=== PATIENT | female | born 1980 | race American Indian/Alaskan Native ===

== ENCOUNTER 2017-04-04 19:38 | Emergency (ER) | payer BC ==
[2017-04-04 19:55] VITALS: O2SAT 100
--- NOTE | 2017-04-04 20:00 | C.PDOC ---
Time Seen by Provider: 04/04/17 19:59 Chief Complaint (Nursing): Abdominal Pain Past Medical History Vital Signs: Last Vital Signs Temp 98.4 F 04/04/17 19:50 Pulse 84 04/04/17 19:50 Resp 20 04/04/17 19:50 BP 124/82 04/04/17 19:50 Pulse Ox 100 04/04/17 19:50 Family History: States: Unknown Family Hx - Social History Hx Tobacco Use: No Hx Alcohol Use: No Hx Substance Use: No - Immunization History Hx Tetanus Toxoid Vaccination: No Hx Influenza Vaccination: No Hx Pneumococcal Vaccination: No ED Course And Treatment O2 Sat by Pulse Oximetry: 100 Disposition Counseled Patient/Family Regarding: Studies Performed, Diagnosis - Disposition Disposition Time: 20:00
--- NOTE | 2017-04-04 20:28 | C.PDOC ---
History Of Present Illness Patient is a 36 y/o female that presents to the emergency department for evaluation of generalized abdominal discomfort associated with nausea for the last 3-4 days. Pt thought that her symptoms may be due to gas, and tried taking Saltzer with no relief. Pt also states that she has history of chronic constipation, and felt symptoms may also be due to constipation, and tried taking stool softeners as well with no relief. Pt states that her symptoms continued to worsen, which prompted her to visit ER today. Pt notes pressure with urination, but no urinary frequency. Pt notes that she had UTI in the past , but her symptoms this time do not feel similar to that. Otherwise, denies any diarrhea, vomiting, fever, chills, back pain, hematuria, or any other associated symptoms at this time. She was able to eat today without difficulty. Time Seen by Provider: 04/04/17 19:59 Chief Complaint (Nursing): Abdominal Pain History Per: Patient History/Exam Limitations: no limitations Onset/Duration Of Symptoms: Days (4) Current Symptoms Are (Timing): Still Present Location Of Pain/Discomfort: Diffuse Radiation Of Pain To:: None Quality Of Discomfort: Pressure, "Pain" Associated Symptoms: Nausea, Urinary Symptoms. denies: Fever, Chills, Vomiting , Diarrhea, Loss Of Appetite, Back Pain, Chest Pain, Constipation Exacerbating Factors: None Alleviating Factors: None Recent travel outside of the [place]: No Additional History Per: Patient Abnormal Vaginal Bleeding: No Past Medical History Reviewed: Historical Data, Nursing Documentation, Vital Signs Vital Signs: Last Vital Signs Temp 98.4 F 04/04/17 19:50 Pulse 84 04/04/17 19:50 Resp 20 04/04/17 19:50 BP 124/82 04/04/17 19:50 Pulse Ox 100 04/04/17 20:38 Family History: States: Unknown Family Hx - Social History Hx Tobacco Use: No Hx Alcohol Use: No Hx Substance Use: No - Immunization History Hx Tetanus Toxoid Vaccination: No Hx Influenza Vaccination: No Hx Pneumococcal Vaccination: No Review Of Systems Except As Marked, All Systems Reviewed And Found Negative. Constitutional: Negative for: Fever, Chills Cardiovascular: Negative for: Chest Pain, Palpitations Respiratory: Negative for: Cough, Shortness of Breath, Wheezing Gastrointestinal: Positive for: Abdominal Pain. Negative for: Nausea, Vomiting , Diarrhea Genitourinary: Positive for: Other (pressure with urination). Negative for: Frequency, Hematuria, Vaginal Discharge, Vaginal Bleeding Musculoskeletal: Negative for: Back Pain Physical Exam - Physical Exam Appears: Non-toxic, No Acute Distress Skin: Normal Color, Warm, Dry Head: Atraumatic, Normacephalic Eye(s): bilateral: Normal Inspection, EOMI Neck: Normal ROM, Supple Chest: Symmetrical, No Tenderness Cardiovascular: Rhythm Regular, No Murmur Respiratory: Normal Breath Sounds, No Rales, No Rhonchi, No Wheezing Gastrointestinal/Abdominal: Soft, Tenderness (mild suprapubic, and periumbilical ), No Distention, No Guarding, No Rebound Extremity: Normal ROM Neurological/Psych: Oriented x3, Normal Speech, Normal Cognition ED Course And Treatment - Laboratory Results Result Diagrams: 04/04/17 20:28 04/04/17 20:28 Lab Interpretation: No Acute Changes O2 Sat by Pulse Oximetry: 100 (on RA) Pulse Ox Interpretation: Normal Progress Note: Labs ordered and reviewed. Reevaluation Time: 23:00 Reassessment Condition: Improved (but still c/o mid abdominal discomfort. Abdomen soft to palpation.) Disposition - Disposition Referrals: [facility] at [facility] [Outside] Disposition: HOME/ ROUTINE Disposition Time: 23:01 Condition: IMPROVED Prescriptions: Dicyclomine [Bentyl] 20 mg PO QID PRN #20 tab PRN Reason: Pain, Moderate (4-7) Instructions: Acute Abdominal Pain (ED) - Clinical Impression Clinical Impression: Abdominal pain - Scribe Statement The provider has reviewed the documentation as recorded by the José Lay Provider Attestation: All medical record entries made by the José were at my direction and personally dictated by me. I have reviewed the chart and agree that the record accurately reflects my personal performance of the history, physical exam, medical decision making, and the department course for this patient. I have also personally directed, reviewed, and agree with the discharge instructions and disposition.
[2017-04-04 20:32] LABS: BASO % 0.5 % (0.0-2.0); EOS # 0.5 K/uL (0.0-0.7); EOS % 4.8 % (0.0-4.0); HEMATOCRIT 38.1 % (34.0-47.0); LYMPH # 2.7 K/uL (1.0-4.3); LYMPH % 27.2 % (20.0-40.0); MEAN CELL VOLUME 88.3 fL (81.0-99.0); MEAN CORPUSCULAR HEMOGLOBIN 29.8 pg (27.0-31.0); MEAN CORPUSCULAR HGB CONC 33.7 g/dL (33.0-37.0); MEAN PLATELET VOLUME 9.2 fL (7.2-11.7); MONO # 0.9 K/uL (0.0-0.8); MONO % 8.6 % (0.0-10.0); RED CELL DISTRIBUTION WIDTH 12.7 % (11.5-14.5); WHITE BLOOD COUNT 9.9 K/uL (4.8-10.8)
[2017-04-04 20:40] LABS: CHLORIDE 100 mmol/L (98-107); POTASSIUM 4.2 mmol/L (3.6-5.2); SODIUM 137 mmol/L (132-148)
[2017-04-04 20:40] LABS: RBC URINE < 1 /hpf (0-3); URINE BACTERIA RARE (<OCC); URINE BILIRUBIN NEGATIVE (NEGATIVE); URINE BLOOD NEGATIVE (NEGATIVE); URINE COLOR Yellow (YELLOW); URINE GLUCOSE (UA) NORMAL (Normal); URINE KETONE NEGATIVE (NEGATIVE); URINE LEUKOCYTE ESTERASE NEG Leu/uL (Negative); URINE PROTEIN NEGATIVE (NEGATIVE); URINE UROBILINOGEN NORMAL mg/dL (0.2-1.0); WBC URINE < 1 /hpf (0-5)
[2017-04-04 20:42] LABS: BILIRUBIN,TOTAL 0.6 mg/dL (0.2-1.3); CARBON DIOXIDE 29 mmol/L (22-30); GFR AFRICAN-AMERICAN > 60
[2017-04-04 20:43] LABS: ALB/GLOB RATIO 1.2 (1.0-2.1); ALKALINE PHOSPHATASE 51 U/L (38-126); ALT/SGPT 24 U/L (9-52); AST/SGOT 24 U/L (14-36); BLOOD UREA NITROGEN 12 mg/dL (7-17); CALCIUM 8.5 mg/dl (8.6-10.4); GLUCOSE,RANDOM 101 mg/dL (65-105); TOTAL PROTEIN 7.6 g/dL (6.3-8.3)
[2017-04-04 23:14] VITALS: BP 112/73; PULSE 77; RESP 16; TEMP 98.2
== END 2017-04-04 23:14 | disposition home or self-care (01) ==
LOC: C.ER 19:38
DX: R10.9 Unspecified abdominal pain (principal)
CPT/HCPCS: 80053; 81001; 83690; 84703; 85025; 87086; 96372; 99284; J0500

== ENCOUNTER 2017-07-27 18:33 | Emergency (ER) | payer BC ==
[2017-07-27 19:18] LABS: URINE BILIRUBIN NEGATIVE (NEGATIVE); URINE BLOOD 3+ (NEGATIVE); URINE COLOR Straw (YELLOW); URINE GLUCOSE (UA) NORMAL (Normal); URINE KETONE NEGATIVE (NEGATIVE); URINE LEUKOCYTE ESTERASE 2+ Leu/uL (Negative); URINE PROTEIN NEGATIVE (NEGATIVE); URINE UROBILINOGEN NORMAL mg/dL (0.2-1.0); WBC URINE 13 /hpf (0-5)
[2017-07-27 19:19] LABS: RBC URINE 4 /hpf (0-3)
--- NOTE | 2017-07-27 20:38 | C.PDOC ---
History Of Present Illness 37 y/o female presents to ED with complaints of dysuria, urinary frequency and hematuria for 3 days. Patient states she "regularly gets UTIs" though this is th efirs this yeat. Denies fever, chills, back pain, abdominal pain, vaginal discharge or any other complaints at this time. Time Seen by Provider: 07/27/17 19:57 Chief Complaint (Nursing): Female Genitourinary History Per: Patient History/Exam Limitations: no limitations Onset/Duration Of Symptoms: Days Current Symptoms Are (Timing): Still Present Associated Symptoms: Urinary Symptoms Past Medical History Reviewed: Historical Data, Nursing Documentation, Vital Signs Vital Signs: Last Vital Signs Temp 98.3 F 07/27/17 20:55 Pulse 72 07/27/17 20:55 Resp 18 07/27/17 20:55 BP 119/69 07/27/17 20:55 Pulse Ox 99 07/27/17 20:55 Surgical History: No Surg Hx Family History: States: No Known Family Hx - Social History Hx Tobacco Use: No Hx Alcohol Use: No Hx Substance Use: No - Immunization History Hx Tetanus Toxoid Vaccination: No Hx Influenza Vaccination: No Hx Pneumococcal Vaccination: No Review Of Systems Except As Marked, All Systems Reviewed And Found Negative. Constitutional: Negative for: Fever, Chills Gastrointestinal: Negative for: Nausea, Vomiting, Abdominal Pain Genitourinary: Positive for: Dysuria, Frequency, Hematuria. Negative for: Incontinence, Vaginal Discharge Musculoskeletal: Negative for: Back Pain Skin: Negative for: Rash Neurological: Negative for: Weakness, Numbness Physical Exam - Physical Exam Appears: Non-toxic, No Acute Distress Skin: Normal Color, Warm, Dry, No Rash Head: Atraumatic, Normacephalic Eye(s): bilateral: Normal Inspection, EOMI Nose: Normal Oral Mucosa: Moist Neck: Normal ROM, Supple Chest: Symmetrical Cardiovascular: Rhythm Regular, No Murmur Respiratory: Normal Breath Sounds, No Rales, No Rhonchi, No Wheezing Gastrointestinal/Abdominal: Soft, No Tenderness, No Guarding, No Rebound Back: No CVA Tenderness, No Vertebral Tenderness, No Paraspinal Tenderness Extremity: Bilateral: Atraumatic Neurological/Psych: Oriented x3, Normal Speech Gait: Steady ED Course And Treatment O2 Sat by Pulse Oximetry: 96 (RA) Pulse Ox Interpretation: Normal Progress Note: Pt was treated with Macrobid and pyridium. Discussed with pt prevention, follow up wiht PMD in 1-2 days or signs of concern to return to eR. Disposition - Disposition Referrals: Pernell Hanson MD [Staff Provider] - Disposition: HOME/ ROUTINE Disposition Time: 20:36 Condition: STABLE Additional Instructions: Follow up with primary medical doctor in 1-3 days without fail for further evaluation. Take medications as prescribed. Return to the emergency department at any time if symptoms persist or worsen. Prescriptions: Nitrofurantoin Macrocrystals [Macrobid] 1 cap PO BID #14 cap Phenazopyridine HCl [Pyridium] 100 mg PO TID #6 tablet Instructions: Urinary Tract Infection in Women (ED) Forms: [employer] (Faroese) - Clinical Impression Clinical Impression: UTI (urinary tract infection) - PA / DIRECTOR BUSINESS INTEGRATION / Resident Statement MD/DO has reviewed & agrees with the documentation as recorded. - Scribe Statement The provider has reviewed the documentation as recorded by the Shanaibmelissa Carcamo All medical record entries made by the Shanaibmelissa were at my direction and personally dictated by me. I have reviewed the chart and agree that the record accurately reflects my personal performance of the history, physical exam, medical decision making, and the department course for this patient. I have also personally directed, reviewed, and agree with the discharge instructions and disposition.
--- NOTE | 2017-07-27 20:39 | C.PDOC ---
Time Seen by Provider: 07/27/17 19:57 Chief Complaint (Nursing): Female Genitourinary Past Medical History Vital Signs: Last Vital Signs Temp 98.6 F 07/27/17 18:47 Pulse 86 07/27/17 18:47 Resp 17 07/27/17 18:47 BP 126/87 07/27/17 18:47 Pulse Ox 96 07/27/17 20:40 Family History: States: Unknown Family Hx - Social History Hx Tobacco Use: No Hx Alcohol Use: No Hx Substance Use: No - Immunization History Hx Tetanus Toxoid Vaccination: No Hx Influenza Vaccination: No Hx Pneumococcal Vaccination: No ED Course And Treatment O2 Sat by Pulse Oximetry: 96 Disposition - Disposition Referrals: Pernell Hanson MD [Staff Provider] - Disposition: HOME/ ROUTINE Disposition Time: 20:36 Condition: STABLE Additional Instructions: Follow up with primary medical doctor in 1-3 days without fail for further evaluation. Take medications as prescribed. Return to the emergency department at any time if symptoms persist or worsen. Prescriptions: Nitrofurantoin Macrocrystals [Macrobid] 1 cap PO BID #14 cap Phenazopyridine HCl [Pyridium] 100 mg PO TID #6 tablet Instructions: Urinary Tract Infection in Women (ED) Forms: [employer] (Micronesian)
[2017-07-27 20:56] VITALS: BP 119/69; PULSE 72; RESP 18; TEMP 98.3
[2017-07-27 23:12] VITALS: O2SAT 96
== END 2017-07-27 20:56 | disposition home or self-care (01) ==
LOC: C.ER 18:33
DX: N39.0 Urinary tract infection, site not specified (principal)

== ENCOUNTER 2017-12-22 10:20 | Emergency (ER) | payer BC ==
[2017-12-22 10:32] VITALS: BMI 36.9
[2017-12-22 10:33] VITALS: TEMP 97.9; O2SAT 99
[2017-12-22] MEDS ORDERED: Naproxen 550 mg Tab PO STA (11:24)
--- NOTE | 2017-12-22 11:25 | C.PDOC ---
History Of Present Illness 37 y/o female presents to the ER complaining of right sided back pain which has been present for the past 2 days.Patient notes that she has this pain twice a year for the past 8 years.Patient describes the pain as " buckling" and feels like it is a "muscle spasm". She states that the pain is worse with movement. She reports that she took Motrin and Percocet last night. Patient denies any trauma, dysuria, urinary frequency, urinary incontinence, change in sensation, and weakness. Time Seen by Provider: 12/22/17 11:13 Chief Complaint (Nursing): Back Pain History Per: Patient History/Exam Limitations: no limitations Onset/Duration Of Symptoms: Days Current Symptoms Are (Timing): Still Present Severity: Moderate Past Medical History Reviewed: Historical Data, Nursing Documentation, Vital Signs Vital Signs: Last Vital Signs Temp 97.9 F 12/22/17 10:32 Pulse 60 12/22/17 13:08 Resp 18 12/22/17 13:08 BP 131/88 12/22/17 13:08 Pulse Ox 99 12/22/17 17:49 - Medical History PMH: No Chronic Diseases Other Surgeries: Hx of surgeries Family History: States: No Known Family Hx - Social History Hx Tobacco Use: No Hx Alcohol Use: No Hx Substance Use: No - Immunization History Hx Tetanus Toxoid Vaccination: No Hx Influenza Vaccination: No Hx Pneumococcal Vaccination: No Review Of Systems Except As Marked, All Systems Reviewed And Found Negative. Genitourinary: Negative for: Dysuria, Frequency Musculoskeletal: Positive for: Back Pain (right-sided back pain) Neurological: Negative for: Weakness Physical Exam - Physical Exam Appears: Well, Non-toxic, No Acute Distress Skin: Normal Color, Warm Head: Atraumatic, Normacephalic Eye(s): bilateral: Normal Inspection, EOMI Nose: Normal Oral Mucosa: Moist Neck: Normal ROM, Supple Chest: Symmetrical Cardiovascular: Rhythm Regular Respiratory: Normal Breath Sounds, No Accessory Muscle Use, No Rales, No Rhonchi , No Wheezing Gastrointestinal/Abdominal: Soft, No Tenderness Back: No CVA Tenderness, No Vertebral Tenderness, Paraspinal Tenderness (right- sided paralumbar tenderness) Extremity: Normal ROM Neurological/Psych: Oriented x3, Normal Speech, Normal Motor, Normal Sensation ED Course And Treatment O2 Sat by Pulse Oximetry: 99 (RA) Pulse Ox Interpretation: Normal - Other Rad Lumbar Spine X-Ray X-Ray: Viewed By Me, Read By Radiologist Interpretation: PROCEDURE: Radiographs of the Lumbar Spine. HISTORY: pain. COMPARISON: None available. FINDINGS: BONES: Minimal curvature of the lumbar spine convex to the right. Alignment appears otherwise satisfactory. No listhesis. No acute displaced fracture identified. Mild degenerative changes including small osteophyte formation periods. DISC SPACES: Unremarkable. OTHER FINDINGS: None. IMPRESSION: No acute displaced fracture or subluxation identified. Progress Note: Patient has been given Naproxen PO and Flexeril PO. On reassessment, patient is resting comfortably, is no longer having back pain, no fever, no bony tenderness, no numbness, no weakness, or abdominal pain. Patient is ambulatory in the emergency department with no signs of discomfort. Patient was advised to follow up with their physician in 1-2 days. Disposition - Disposition Referrals: Adan Merino III, MD [Staff Provider] - Disposition: HOME/ ROUTINE Disposition Time: 12:43 Condition: STABLE Additional Instructions: Please follow up with your orthopedist in 2-5 days for further evaluation. Give your child medications as prescribed. Return to the emergency department at any time if symptoms persist or worsen. Prescriptions: Cyclobenzaprine [Cyclobenzaprine HCl] 10 mg PO TID #20 tab Naproxen [Naprosyn] 1 tab PO BID PRN #20 tab PRN Reason: Pain Instructions: Low Back Pain (DC) Forms: [facility] (Tristanian), Work Excuse - Clinical Impression Clinical Impression: Lumbar sprain - PA / POLICE DETECTIVE / Resident Statement MD/DO has reviewed & agrees with the documentation as recorded. - Scribe Statement The provider has reviewed the documentation as recorded by the José Sawyer Provider Attestation All medical record entries made by the Shanaibmelissa were at my direction and personally dictated by me. I have reviewed the chart and agree that the record accurately reflects my personal performance of the history, physical exam, medical decision making, and the department course for this patient. I have also personally directed, reviewed, and agree with the discharge instructions and disposition.
[2017-12-22] MEDS ORDERED: Naproxen 550 mg Tab PO ONE (11:42)
[2017-12-22 11:51] LABS: HCG,QUALITATIVE URINE NEGATIVE (NEGATIVE)
[2017-12-22 11:58] LABS: SQUAMOUS EPITHIAL 3 /hpf (0-5); URINE BACTERIA RARE (<OCC); URINE BILIRUBIN NEGATIVE (NEGATIVE); URINE BLOOD NEGATIVE (NEGATIVE); URINE CLARITY Clear (Clear); URINE COLOR Yellow (YELLOW); URINE GLUCOSE (UA) NORMAL (Normal); URINE LEUKOCYTE ESTERASE NEG Leu/uL (Negative); URINE NITRATE NEGATIVE (NEGATIVE); URINE PROTEIN NEGATIVE (NEGATIVE); URINE UROBILINOGEN NORMAL mg/dL (0.2-1.0)
--- NOTE | 2017-12-22 12:44 | RAD ---
PROCEDURE: Radiographs of the Lumbar Spine. HISTORY: pain COMPARISON: None available. FINDINGS: BONES: Minimal curvature of the lumbar spine convex to the right. Alignment appears otherwise satisfactory. No listhesis. No acute displaced fracture identified. Mild degenerative changes including small osteophyte formation periods DISC SPACES: Unremarkable. OTHER FINDINGS: None. IMPRESSION: No acute displaced fracture or subluxation identified.
[2017-12-22 13:09] VITALS: BP 131/88; PULSE 60; RESP 18
== END 2017-12-22 13:09 | disposition home or self-care (01) ==
LOC: C.ER 10:20
DX: S33.5XXA Sprain of ligaments of lumbar spine, initial encounter (principal); X58.XXXA Exposure to other specified factors, initial encounter